=== PATIENT | male | born 1975 | race Caucasian/White ===

== ENCOUNTER 2019-12-29 18:13 | Emergency (ER) | payer OTHER ==
[~2019-12-29] VITALS: Ht 68 cm; Wt 83.0 kg
[~2019-12-29 18:13] MED LIST: ACHD5005 PO; CEPH500C PO; GENT5DRO3 OD; HYDR1CAP2 PO; HYDR1TAB8 OP; NAPR-243 PO; SULF1TAB35 PO; SULF1TAB38 PO
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
--- NOTE | 2019-12-29 19:06 | NUR ---
Pt denies need for anything at this time.
[2019-12-29 19:45] VITALS: BP 110/78
[2019-12-29] MEDS ORDERED: HYDROcodone/APAP 5 MG/325 MG (LORTAB) TAB PO ONE (19:45)
[2019-12-29 19:49] VITALS: BP 117/68
== END 2019-12-29 19:49 | disposition home or self-care (01) ==
LOC: EDUNIT# 18:13 → ER 18:15
DX: S70.02XA Contusion of left hip, initial encounter (principal); S50.812A Abrasion of left forearm, initial encounter; S80.812A Abrasion, left lower leg, initial encounter; S30.811A Abrasion of abdominal wall, initial encounter; R40.2142 Coma scale, eyes open, spontaneous, at arrival to emergency department; R40.2252 Coma scale, best verbal response, oriented, at arrival to emergency department; R40.2362 Coma scale, best motor response, obeys commands, at arrival to emergency department; F17.200 Nicotine dependence, unspecified, uncomplicated; V23.4XXA Motorcycle driver injured in collision with car, pick-up truck or van in traffic accident, initial encounter

== ENCOUNTER 2021-06-28 11:31 | Day surgery (SDC) | payer SELFPAY ==
[~2021-06-28] VITALS: Ht 172 cm; Wt 83.0 kg
[2021-06-28] VITALS (10 sets, daily range): BP systolic 110–159; BP diastolic 80–89
[2021-06-28] MEDS ORDERED: NS IV 1000 ML 1,000 ML IV STA (11:46)
--- NOTE | 2021-06-28 11:50 | ED Abdominal Pain ---
General Chief Complaint: Abdominal/GI Problems Stated Complaint: ABD PAIN,N/V Nursing Triage Note: PT AMB TO RM 6 PT CO OF ABD PAIN, STATES STARTED THIS AM, HAS VOMITED 3X. DENIES FEVERS OR DIARRHEA. Source of Information: Patient Exam Limitations: No Limitations History of Present Illness Date Seen by Provider: Jun 28, 2021 Time Seen by Provider: 11:48 Initial Comments Patient is a 46-year-old male who presents ED with mid abdominal pain. Started 3 or 4 hours ago. Described as a crampy pain located to his mid abdomen. Patient vomited 3 or 4 times without any bile or hematemesis. No diarrhea. No history of previous abdominal surgery. Patient attempted to take Tums and Pepto-Bismol but immediately vomited. History of GERD. Denies any chest pain, cough, fever, headache, shortness of breath, dysuria, decreased urine output, dizziness. Patient states he did eat cheese last night which may have upset his stomach. Denies of any recent travels Allergies and Home Medications Allergies Coded Allergies: No Known Drug Allergies (Verified , 02/14/07) Patient Home Medication List Home Medication List Reviewed: Yes Hydrocodone Bit/Ibuprofen (Vicoprofen 200-7.5 Mg Tab) 1 Each Tablet, 1 EACH OP Q 4 - 6 HRS PRN PRN for PAIN Prescribed by: HIEU FELIX on 10/26/142119 Sulfamethoxazole/Trimethoprim (Bactrim DS) 1 Each Tablet, 1 TAB PO BID Prescribed by: HIEU FELIX on 10/26/142119 Trimethoprim/Sulfamethoxazole (Bactrim Ds) 1 Ea Tablet, 1 EA PO BID Prescribed by: ANIBAL CRUZ on 05/14/11 1503 Review of Systems Review of Systems Constitutional: No chills, No diaphoresis, No fever, No malaise, No weakness EENTM: No Double Vision, No Ear Drainage, No Mouth Pain, No Mouth Swelling, No Throat Pain Respiratory: Denies Cough, Denies SOA With Exertion, Denies SOA at Rest Cardiovascular: Denies Chest Pain, Denies Edema, Denies Irregular Heart Rate Gastrointestinal: Abdominal Pain; Denies Diarrhea; Nausea, Vomiting Genitourinary: Denies Burning, Denies Discharge, Denies Frequency Musculoskeletal: No back pain, No joint pain Skin: No change in color, No change in hair/nails All Other Systems Reviewed Negative Unless Noted: Yes Past Nhrofdv-Xaiiqz-Vibfhi Hx Patient Social History Tobacco Use?: Yes Smoking Status: Current Everyday Smoker Substance use?: No Alcohol Use?: No Pt feels they are or have been: No Immunizations Up To Date Tetanus Booster (TDap): Less than 5yrs Past Medical History Orthopedic Reproductive Disorders: No Physical Exam Vital Signs Vital Signs - First Documented 06/28/21 11:37 Temp 35.5 Pulse 80 Resp 18 B/P (MAP) 141/82 (101) Pulse Ox 99 O2 Delivery Room Air Capillary Refill : Less Than 3 Seconds Height/Weight/BMI Height: 5'8" Weight: 170lbs. oz. 77.094250dt; 28.00 BMI Method:Stated General Appearance: WD/WN, no apparent distress HEENT: PERRL/EOMI, normal ENT inspection, TMs normal, pharynx normal Neck: non-tender, full range of motion, normal inspection Respiratory: chest non-tender, lungs clear, normal breath sounds, no respiratory distress, no accessory muscle use Cardiovascular: regular rate, rhythm, no edema, no gallop, no JVD Gastrointestinal: normal bowel sounds, non tender, other (Mid abdominal tenderness) Extremities: normal range of motion, non-tender, normal inspection, no pedal edema, no calf tenderness Back: normal inspection, no CVA tenderness, no vertebral tenderness Skin: normal color, warm/dry Progress/Results/Core Measures Results/Orders Lab Results Laboratory Tests Test 06/28/21 11:55 06/28/21 12:00 Range/Units White Blood Count 19.9 H 4.3-11.0 10^3/uL Red Blood Count 5.07 4.30-5.52 10^6/uL Hemoglobin 15.0 13.3-17.7 g/dL Hematocrit 43 40-54 % Mean Corpuscular Volume 85 80-99 fL Mean Corpuscular Hemoglobin 30 25-34 pg Mean Corpuscular Hemoglobin Concent 35 32-36 g/dL Red Cell Distribution Width 12.5 10.0-14.5 % Platelet Count 370 130-400 10^3/uL Mean Platelet Volume 9.5 9.0-12.2 fL Immature Granulocyte % (Auto) 1 % Neutrophils (%) (Auto) 86 H 42-75 % Lymphocytes (%) (Auto) 8 L 12-44 % Monocytes (%) (Auto) 6 0-12 % Eosinophils (%) (Auto) 0 0-10 % Basophils (%) (Auto) 0 0-10 % Neutrophils # (Auto) 17.1 H 1.8-7.8 10^3/uL Lymphocytes # (Auto) 1.5 1.0-4.0 10^3/uL Monocytes # (Auto) 1.1 H 0.0-1.0 10^3/uL Eosinophils # (Auto) 0.0 0.0-0.3 10^3/uL Basophils # (Auto) 0.1 0.0-0.1 10^3/uL Immature Granulocyte # (Auto) 0.1 0.0-0.1 10^3/uL Neutrophils % (Manual) 84 % Lymphocytes % (Manual) 9 % Monocytes % (Manual) 5 % Eosinophils % (Manual) 0 % Basophils % (Manual) 0 % Band Neutrophils 2 % Blood Morphology Comment NORMAL Sodium Level 137 135-145 MMOL/L Potassium Level 3.8 3.6-5.0 MMOL/L Chloride Level 103 98-107 MMOL/L Carbon Dioxide Level 23 21-32 MMOL/L Anion Gap 11 5-14 MMOL/L Blood Urea Nitrogen 13 7-18 MG/DL Creatinine 0.81 0.60-1.30 MG/DL Estimat Glomerular Filtration Rate 111 BUN/Creatinine Ratio 16 Glucose Level 136 H 70-105 MG/DL Calcium Level 9.2 8.5-10.1 MG/DL Corrected Calcium 8.9 8.5-10.1 MG/DL Total Bilirubin 0.2 0.1-1.0 MG/DL Aspartate Amino Transf (AST/SGOT) 14 5-34 U/L Alanine Aminotransferase (ALT/SGPT) 36 0-55 U/L Alkaline Phosphatase 78 40-136 U/L Total Protein 7.1 6.4-8.2 GM/DL Albumin 4.4 3.2-4.5 GM/DL Lipase 12 8-78 U/L Urine Color YELLOW Urine Clarity CLEAR Urine pH 6.0 5-9 Urine Specific [place] >=1.030 1.016-1.022 Urine Protein NEGATIVE NEGATIVE Urine Glucose (UA) NEGATIVE NEGATIVE Urine Ketones TRACE H NEGATIVE Urine Nitrite NEGATIVE NEGATIVE Urine Bilirubin NEGATIVE NEGATIVE Urine Urobilinogen 0.2 < = 1.0 MG/DL Urine Leukocyte Esterase NEGATIVE NEGATIVE Urine RBC (Auto) NEGATIVE NEGATIVE Urine RBC RARE /HPF Urine WBC RARE /HPF Urine Crystals NONE /LPF Urine Bacteria TRACE /HPF Urine Casts NONE /LPF Urine Mucus SMALL H /LPF Urine Culture Indicated NO My Orders Orders - SVEN STALEY Cbc With Automated Diff (06/28/21 11:46) Comprehensive Metabolic Panel (06/28/21 11:46) Lipase (06/28/21 11:46) Ondansetron Injection (Zofran Injectio (06/28/21 12:00) Ns Iv 1000 Ml (Sodium Chloride 0.9%) (06/28/21 11:46) Ua Culture If Indicated (06/28/21 11:46) Manual Differential (06/28/21 11:55) Ct Abdomen/Pelvis W (06/28/21 12:03) Iohexol Injection (Omnipaque 350 Mg/Ml 1 (06/28/21 12:15) Received Contrast (Hold Metformin- Contr (06/28/21 12:15) Ns (Ivpb) (Sodium Chloride 0.9% Ivpb Bag (06/28/21 12:15) Piperacillin Sodium/Tazobactam (Zosyn Vi (06/28/21 13:00) Nothing By Mouth (06/28/21 Lunch) Piperacillin Sodium/Tazobactam (Zosyn Vi (06/28/21 13:10) Medications Given in ED Current Medications Medications Dose Ordered Sig/Pal Route Start Time Stop Time Status Last Admin Dose Admin Iohexol 100 ml ONCE ONCE IV 06/28/21 12:15 06/28/21 12:16 DC 06/28/21 12:34 100 ML Ondansetron HCl 4 mg ONCE ONCE IVP 06/28/21 12:00 06/28/21 12:01 DC 06/28/21 11:50 4 MG Piperacillin Sod/ Tazobactam Sod 4.5 gm/Sodium Chloride 100 ml @ 200 mls/hr ONCE ONCE IV 06/28/21 13:00 06/28/21 13:29 DC 06/28/21 13:14 200 MLS/HR Sodium Chloride 100 ml ONCE ONCE IV 06/28/21 12:15 06/28/21 12:16 DC 06/28/21 12:35 80 ML Vital Signs/I&O 06/28/21 11:37 Temp 35.5 Pulse 80 Resp 18 B/P (MAP) 141/82 (101) Pulse Ox 99 O2 Delivery Room Air Blood Pressure Mean: 101 Departure Communication (Admissions) Time/Spoke to Admitting Phy: 12:[address] Kenyon at 1253. Patient with acute pain ascites without perforation. N.p.o. Started on Zosyn. Was given dose IV fluids. Nausea improved with Zofran. Pain controlled. Patient will go to the OR. Impression Primary Impression: Appendicitis Disposition: ADMITTED INPATIENT Condition: Stable Admissions Decision to Admit Reason: Admit from ER (General) Decision to Admit/Date: Jun 28, 2021 Time/Decision to Admit Time: 12:56 Departure-Patient Inst. Referrals: [facility] (PCP/Family) Primary Care Physician SVEN STALEY Jun 28, 2021 11:50
[2021-06-28] MEDS ORDERED: ONDANSETRON 4 MG/2 ML (SDV) Z0FRAN IVP ONE (12:00)
[2021-06-28 12:02] LABS: BASOPHILS # (AUTO) 0.1 10^3/uL (0.0-0.1); BASOPHILS % (AUTO) 0 % (0-10); EOSINOPHILS % (AUTO) 0 % (0-10); HEMATOCRIT 43 % (40-54); LYMPHOCYTES # (AUTO) 1.5 10^3/uL (1.0-4.0); LYMPHOCYTES % (AUTO) 8 % (12-44); MEAN CORPUSCULAR HEMOGLOBIN 30 pg (25-34); MEAN CORPUSCULAR HGB CONC 35 g/dL (32-36); MEAN CORPUSCULAR VOLUME 85 fL (80-99); MEAN PLATELET VOLUME 9.5 fL (9.0-12.2); MONOCYTES # (AUTO) 1.1 10^3/uL (0.0-1.0); MONOCYTES % (AUTO) 6 % (0-12); NEUTROPHILS # (AUTO) 17.1 10^3/uL (1.8-7.8); NEUTROPHILS % (AUTO) 86 % (42-75); PLATELET COUNT 370 10^3/uL (130-400); WHITE BLOOD COUNT 19.9 10^3/uL (4.3-11.0)
[2021-06-28 12:06] LABS: BILIRUBIN,URINE NEGATIVE (NEGATIVE); CLARITY,URINE CLEAR; COLOR,URINE YELLOW; GLUCOSE, URINE (UA) NEGATIVE (NEGATIVE); KETONES,URINE TRACE (NEGATIVE); LEUKOCYTE ESTERASE ,URINE NEGATIVE (NEGATIVE); NITRITE,URINE NEGATIVE (NEGATIVE); PROTEIN,URINE NEGATIVE (NEGATIVE)
[2021-06-28 12:13] LABS: BACTERIA,URINE TRACE /HPF; RBC,URINE RARE /HPF; WBC,URINE RARE /HPF
[2021-06-28] MEDS ORDERED: NS 100 ML (IVPB) BAG IV ONE (12:15)
[2021-06-28] MEDS ORDERED: HOLD METFORMIN - RECEIVED CONTRAST 20 ML VIAL IV SCH (12:15)
[2021-06-28] MEDS ORDERED: IOHEXOL 350 MG/ML 100 ML (OMNIPAQUE 350) VIAL IV ONE (12:15)
[2021-06-28 12:16] LABS: ALBUMIN 4.4 GM/DL (3.2-4.5); POTASSIUM 3.8 MMOL/L (3.6-5.0)
[2021-06-28 12:17] LABS: CALCIUM 9.2 MG/DL (8.5-10.1)
[2021-06-28 12:19] LABS: TOTAL PROTEIN 7.1 GM/DL (6.4-8.2)
[2021-06-28 12:20] LABS: BILIRUBIN,TOTAL 0.2 MG/DL (0.1-1.0)
[2021-06-28 12:22] LABS: CREATININE SERUM 0.81 MG/DL (0.60-1.30)
--- NOTE | 2021-06-28 12:43 | Diagnostic Imaging Report ---
PROCEDURE: CT abdomen and pelvis with contrast. TECHNIQUE: Multiple contiguous axial images were obtained through the abdomen and pelvis after administration of intravenous contrast. Auto Exposure Controls were utilized during the CT exam to meet ALARA standards for radiation dose reduction. All CT scans use one or more of the following dose optimizing techniques: automated exposure control, MA and/or KvP adjustment based on patient size and exam type or iterative reconstruction. INDICATION: Right lower quadrant pain, leukocytosis The lung bases are clear. Liver appears normal. Portal vein is patent. Gallbladder is unremarkable. Common duct is not dilated. Pancreas appears normal. Spleen is not enlarged. GE junction is unremarkable. Adrenals are normal. Kidneys are unremarkable. Aorta and IVC appear normal. Small bowel is not dilated. The appendix is distended with a thickened wall and some periappendiceal induration of the fat. There is diverticulosis of the colon without evidence of diverticulitis. Urinary bladder and prostate appear normal. There is no intraperitoneal free air or free fluid. IMPRESSION: Acute appendicitis without evidence of perforation. Dictated by: Dictated on workstation # [id number]
[2021-06-28 12:55] LABS: BAND NEUTROPHILS 2 %; BASOPHILS % (MANUAL) 0 %; EOSINOPHILS % (MANUAL) 0 %; LYMPHOCYTES % (MANUAL) 9 %; MONOCYTES % (MANUAL) 5 %; NEUTROPHILS % (MANUAL) 84 %; RBC MORPH NORMAL
[2021-06-28] MEDS ORDERED: PIPERACILLIN SODIUM/TAZOBACTAM 4.5 GM in NS (IVPB) 100 ML IV ONE (13:00)
[2021-06-28] MEDS ORDERED: PIPERACILLIN/TAZO 4.5 GM VIAL (ZOSYN) IV ONE (13:10)
--- NOTE | 2021-06-28 14:31 | History & Physical-Surgical ---
DEANA HEALY 06/28/21 1431: History of Present Illness History of Present Illness Reason for visit/HPI CC: Stomach pain 46 yo male presented to the ER with 3-4 hours of sharp 8/10 pain over his belly button. The pain had since moved to his RLQ. The pt had N/V earlier in the day; the anti-nausea medicine made the pain better. He last had a bowel movement yesterday and is urinating frequently without pain. He last ate at 7 or 8pm last night and has not drank anything since 9am this morning. Pt had a CT of his abd/pelvis which showed acute appendicitis and no evidence of perforation. Date of Admission 06/28/21 Date Seen by a Provider: Jun 28, 2021 Time Seen by a Provider: 20:00 I consulted on this patient on 06/28/21 14:25 Attending Physician Wilman Rowell DO Admitting Physician [place] Consult Allergies and Home Medications Allergies Coded Allergies: No Known Drug Allergies (Verified , 02/14/07) Patient Home Medication List Hydrocodone Bit/Ibuprofen (Vicoprofen 200-7.5 Mg Tab) 1 Each Tablet, 1 EACH OP Q 4 - 6 HRS PRN PRN for PAIN Prescribed by: HIEU FELIX on 10/26/142119 Sulfamethoxazole/Trimethoprim (Bactrim DS) 1 Each Tablet, 1 TAB PO BID Prescribed by: HIEU FELIX on 10/26/142119 Trimethoprim/Sulfamethoxazole (Bactrim Ds) 1 Ea Tablet, 1 EA PO BID Prescribed by: ANIBAL CRUZ on 05/14/11 1503 Past Gsjwddt-Qdurwq-Kkxznn Hx Patient Social History Tobacco Use?: Yes Tobacco type used: Cigarettes Smoking Status: Current Everyday Smoker Substance use?: No Alcohol Use?: No Pt feels they are or have been: No Current Status Advance Directives: No Communicates: Verbally Primary Language: Armenian Preferred Spoken Language: Armenian Is interpretation needed?: No Sensory deficits: Vision impairment Implanted or Applied Medical D: None Past Medical History Surgeries: Ear Surgery, Orthopedic, Tonsillectomy Gastroesophageal Reflux Schizophrenia Review of Systems Constitutional: No chills, No fever EENTM: No ear pain, No blurred vision Respiratory: No cough, No short of breath Cardiovascular: No chest pain, No palpitations Gastrointestinal: RLQ, abdominal pain, nausea, vomiting Genitourinary: no symptoms reported; No dysuria, No incontinence Musculoskeletal: No joint pain, No muscle cramps Skin: dryness; No rash Psychiatric/Neurological: Denies Headache; Other (hears voices) Physical Exam Vital Signs Vital Signs - First Documented 06/28/21 11:37 Temp 35.5 Pulse 80 Resp 18 B/P (MAP) 141/82 (101) Pulse Ox 99 O2 Delivery Room Air Capillary Refill : Less Than 3 Seconds Height, Weight, BMI Height: 5'8" Weight: 170lbs. oz. 77.463085dl; 28.00 BMI Method:Stated General Appearance: WD/WN, Mild Distress Respiratory: Lungs Clear, Normal Breath Sounds Cardiovascular: Regular Rate, Rhythm, No Murmur Gastrointestinal: Normal Bowel Sounds, No Pulsatile Mass, Tenderness (RLQ) Neurologic/Psychiatric: Alert, Oriented x3, Normal Mood/Affect Skin: Normal Color, Warm/Dry Data Review Labs Laboratory Tests 06/28/21 11:55: White Blood Count 19.9H, Red Blood Count 5.07, Hemoglobin 15.0, Hematocrit 43, Mean Corpuscular Volume 85, Mean Corpuscular Hemoglobin 30, Mean Corpuscular Hemoglobin Concent 35, Red Cell Distribution Width 12.5, Platelet Count 370, Mean Platelet Volume 9.5, Immature Granulocyte % (Auto) 1, Neutrophils (%) (Auto) 86H, Lymphocytes (%) (Auto) 8L, Monocytes (%) (Auto) 6, Eosinophils (%) (Auto) 0, Basophils (%) (Auto) 0, Neutrophils # (Auto) 17.1H, Lymphocytes # (Auto) 1.5, Monocytes # (Auto) 1.1H, Eosinophils # (Auto) 0.0, Basophils # (Auto) 0.1, Immature Granulocyte # (Auto) 0.1, Neutrophils % (Manual) 84, Lymphocytes % (Manual) 9, Monocytes % (Manual) 5, Eosinophils % (Manual) 0, Basophils % (Manual) 0, Band Neutrophils 2, Blood Morphology Comment NORMAL, Sodium Level 137, Potassium Level 3.8, Chloride Level 103, Carbon Dioxide Level 23, Anion Gap 11, Blood Urea Nitrogen 13, Creatinine 0.81, Estimat Glomerular Filtration Rate 111, BUN/Creatinine Ratio 16, Glucose Level 136H, Calcium Level 9.2, Corrected Calcium 8.9, Total Bilirubin 0.2, Aspartate Amino Transf (AST/SGOT) 14, Alanine Aminotransferase (ALT/SGPT) 36, Alkaline Phosphatase 78, Total Protein 7.1, Albumin 4.4, Lipase 12 06/28/21 12:00: Urine Color YELLOW, Urine Clarity CLEAR, Urine pH 6.0, Urine Specific [place] >=1.030, Urine Protein NEGATIVE, Urine Glucose (UA) NEGATIVE, Urine Ketones TRACEH, Urine Nitrite NEGATIVE, Urine Bilirubin NEGATIVE, Urine Urobilinogen 0.2, Urine Leukocyte Esterase NEGATIVE, Urine RBC (Auto) NEGATIVE, Urine RBC RARE, Urine WBC RARE, Urine Crystals NONE, Urine Bacteria TRACE, Urine Casts NONE, Urine Mucus SMALLH, Urine Culture Indicated NO Assessment/Plan Assessment/Plan Admission Diagonsis Appendicitis Assessment/Plan Abdominal pain secondary to acute appendicitis N/V HTN Possible schizophrenia Appendectomy Monitor bp Voices controlled by Invega injections WILMAN ROWELL DO 06/28/21 1543: History of Present Illness History of Present Illness Reason for visit/HPI CC: rlq abd pain. Seen and evaluated in ED. Patient is a 46 year old male began having pain at umbilicus this morning. Then migrated to right lower quadrant. Had nausea and emesis. Pain sharp and 8/10 at worse. No radiation of pain at this time. Movement makes worse, nothing better. Denies fever sweats chills shortness of breath or chest pain. Patient had ct scan which we reviewed that demonstrates findings consistent with acute appendicitis. Date of Admission T Allergies and Home Medications Allergies Coded Allergies: No Known Drug Allergies (Verified , 02/14/07) Patient Home Medication List Home Medication List Reviewed: Yes Hydrocodone Bit/Ibuprofen (Vicoprofen 200-7.5 Mg Tab) 1 Each Tablet, 1 EACH OP Q 4 - 6 HRS PRN PRN for PAIN Prescribed by: HIEU FELIX on 10/26/142119 Sulfamethoxazole/Trimethoprim (Bactrim DS) 1 Each Tablet, 1 TAB PO BID Prescribed by: HIEU FELIX on 10/26/142119 Trimethoprim/Sulfamethoxazole (Bactrim Ds) 1 Ea Tablet, 1 EA PO BID Prescribed by: ANIBAL CRUZ on 05/14/11 1503 Past Vomvidl-Kzxvwt-Bsnbfc Hx Patient Social History Tobacco type used: Cigarettes Alcohol Use?: Yes Alcohol Frequency: Once in a while Past Medical History Surgeries: Ear Surgery, Orthopedic, Tonsillectomy Gastroesophageal Reflux Schizophrenia Family Medical History Reviewed Nursing Family Hx No Pertinent Family Hx Review of Systems Constitutional: No chills, No fever EENTM: No ear pain, No blurred vision Respiratory: No cough, No dyspnea on exertion, No short of breath Cardiovascular: No chest pain, No palpitations Gastrointestinal: RLQ, abdominal pain (RLQ), nausea, vomiting Genitourinary: No dysuria, No incontinence Musculoskeletal: No joint pain, No muscle cramps Skin: No change in color, No change in hair/nails; dryness; No rash Psychiatric/Neurological: Denies Anxiety, Denies Depressed, Denies Emotional Problems, Denies Headache All Other Systems Reviewed Negative Unless Noted: Yes (Negative excepted noted.) Physical Exam General Appearance: No Apparent Distress, WD/WN HEENT: PERRL/EOMI, Normal ENT Inspection Neck: Normal Inspection, Non Tender Respiratory: Chest Non Tender, No Accessory Muscle Use, No Respiratory Distress Cardiovascular: Regular Rate, Rhythm, No JVD Gastrointestinal: No Organomegaly, Soft, Tenderness (RLQ), Other (small umbilical hernia) Rectal: Deferred Back: No CVA Tenderness, No Vertebral Tenderness Extremity: Non Tender, No Calf Tenderness Neurologic/Psychiatric: Alert, Oriented x3 Skin: Normal Color, Warm/Dry Lymphatic: No Adenopathy Assessment/Plan Assessment/Plan Admission Diagonsis rlq abdominal acute appendicitis leukocytosis Admission Status: Observation Assessment/Plan RLQ Abdominal pain secondary to acute appendicitis N/V Elevated blood pressure Possible schizophrenia We discussed risks and benefits of laparoscopic appendectomy all other indicated procedures. Understand and wishes to proceed. Monitor vitals NPO IV hydration Zosyn To OR for procedure. Supervisory-Addendum Brief Verification & Attestation Participated in pt care: history, MDM, physical Personally performed: exam, history, MDM, supervision of care Care discussed with: Medical Student Procedures: n/a Results interpretation: Verified all documentation Verification and Attestation of Medical Student E/M Service A medical student performed and documented this service in my presence. I reviewed and verified all information documented by the medical student and made modifications to such information, when appropriate. I personally performed the physical exam and medical decision making. Wilman Rowell, Jun 28, 2021,15:47 DEANA HEALY Jun 28, 2021 14:31 WILMAN ROWELL DO Jun 28, 2021 15:43
[2021-06-28] MEDS: LACTATED RINGERS 1,000 ML IV PRN ×2 (15:20→16:20)
[2021-06-28] MEDS ORDERED: LIDOCAINE/EPI 1%-1:200,000 (XYLOCAINE) 30 ML VIAL ONE (15:36)
[2021-06-28] MEDS ORDERED: proPOfol 200 MG/20 ML (DIPRIVAN) VIAL IV ONE (15:39)
[2021-06-28] MEDS ORDERED: MIDAZOLAM 2 MG/2 ML (VERSED) VIAL ONE (15:39)
[2021-06-28] MEDS ORDERED: LIDOCAINE PF 2% 5 ML (XYLOCAINE) VIAL ONE (15:39)
[2021-06-28] MEDS ORDERED: fentaNYL INJ 100 MCG/2 ML AMP ONE (15:39)
[2021-06-28] MEDS ORDERED: ceFAZolin INJECTION 2,000 MG ONE (16:08)
[2021-06-28] MEDS ORDERED: KETOROLAC 30 MG/ML VIAL ONE (16:41)
[2021-06-28] MEDS ORDERED: ONDANSETRON 4 MG/2 ML (SDV) Z0FRAN ONE (16:41)
[2021-06-28] MEDS ORDERED: SEVOFLURANE (ULTANE) 15 ML INHAL SOLN ONE (16:41)
[2021-06-28] MEDS ORDERED: ROCURONIUM 50 MG/5 ML (ZEMURON) VIAL IV ONE (16:41)
[2021-06-28] MEDS ORDERED: morphine INJ 10 MG/ML 1ML (SYR OR VIAL) ONE (17:21)
--- NOTE | 2021-06-28 17:22 | Anesthesia-General Post-Op ---
General Patient Condition Mental Status/LOC: Same as Preop Cardiovascular: Satisfactory Nausea/Vomiting: Absent Respiratory: Satisfactory Pain: Controlled Complications: Absent Post Op Complications Complications None Follow Up Care/Instructions Patient Instructions None needed. Anesthesia/Patient Condition Patient Condition Patient is doing well, no complaints, stable vital signs, no apparent adverse anesthesia problems. No complications reported per nursing. MICHELLE VAZQUEZ CRNA Jun 28, 2021 17:22
[2021-06-28] MEDS ORDERED: morphine INJ 10 MG/ML 1ML (SYR OR VIAL) IVP ONE (17:30)
[2021-06-28] MEDS ORDERED: PROMETHAZINE INJ 25 MG/ML (PHENERGAN) AMP IVP ONE (17:30)
[2021-06-28] MEDS ORDERED: ONDANSETRON 4 MG/2 ML (SDV) Z0FRAN IVP PRN (17:30)
[2021-06-28] MEDS ORDERED: ACHD5005 PO (17:34)
[2021-06-28] MEDS ORDERED: DOCU-143 PO (17:34)
--- NOTE | 2021-06-28 17:35 | Discharge Inst-Simple/Standard ---
Discharge Inst-Standard Discharge Medications New, Converted or Re-Newed RX: Transmitted to Pharmacy Patient Instructions/Follow Up Plan of Care/Instructions/FU: 2 weeks corwin Activity as Tolerated: No Discharge Diet: Regular Diet Other Inst to Patient Follow up Appt: Make appointment for 2 week. Instructions: No lifting greater than 10 pounds. No strenuous activity. May shower in 24 hours, no tub bath or soaking. Use incentive spirometer at home as directed. No Smoking Skin/Wound Care: You have special glue over your incision that will fall off on it's own. Symptoms to Report: Appetite Changes, Extremity Discoloration, Numbness/Tingling, Swelling Increased, Bleeding Excessive, Eyesight Changes, Pain Increased, Urine Color Change, Constipation(Persistent), Fever over 101 degree F, Pain/Pressure in chest, Urinating Difficulty, Cough Up/Vomit Blood, Heart Beat Irreg/Pounding, Pain/Pressure in jaw, Vaginal Bleeding Increase, Cramps in feet or legs, Lightheadedness, Pain/Pressure in shoulder, Diarrhea(Persistent), Memory Changes Suddenly, Questions/Concerns, Weight gain consecutive days, Dizziness/Fainting, Nausea/Vomiting, Shortness of Breath, Weight gain over 2 pounds If questions or concerns contact your physician Or seek help at emergency department. WILMAN ROWELL DO Jun 28, 2021 17:35
--- NOTE | 2021-06-28 17:37 | Progress Note-Post Operative ---
Post-Operative Progess Note Surgeon (s)/Tag Meter Operator (s) Surgeon WILMAN ROWELL DO Tag Meter Operator: na Pre-Operative Diagnosis acute appendicitis Post-Operative Diagnosis same Procedure & Operative Findings Date of Procedure 06/28/21 Procedure Performed/Findings PROCEDURE: Laparoscopic appendectomy. COMPLICATIONS: None. INDICATIONS: The patient is a 46 year old male who has been having right lower quadrant abdominal pain. Patient's exam consistent with appendicitis. I discussed risk and benefits of laparoscopic appendectomy and all indicated procedures with the possibility being a normal appendix. The patient understands the risks and benefits and wishes to proceed. Consent was signed on the chart. DESCRIPTION OF PROCEDURE: The patient was taken to the operating suite, prepped and draped in a sterile fashion. Timeout was performed. Local anesthetic was infiltrated just above the umbilicus and 11-blade scalpel was used to make a skin incision. Cautery was used to dissect down to the fascia and scored. Kochers were used to grasp and elevate it and the abdomen was then entered. A 0 Vicryl was placed in a [id number] fashion for closure at the end of the case. The balloon trocar was inserted into the abdomen and pneumoperitoneum was achieved. Under direct visualization of the laparoscope, a 5 mm trocar was placed in the suprapubic region and a 5 mm trocar was placed in the left lower quadrant. Appendix was located, Inflamed appendix no perforation. The base of the appendix was dissected around. Once at the base an Endo-TIFFANI 2.5 stapler was then fired across the base of the appendix. The mesoappendix was then divided. It was then placed in an Endobag and removed through the 12 mm trocar site. The abdomen was then irrigated and suctioned. No other pathology noted. The abdomen was then desufflated and the trocars were removed. The 0 Vicryl placed at the beginning of the case was then tied closing the 12 mm fascial defect. The skin was then closed using 4-0 Monocryl in a subcuticular fashion. The abdomen was then washed and dried and Skin Affix was placed over the incisions. The patient tolerated the procedure well without any complications and was taken to the recovery room in stable condition. Anesthesia Type general Estimated Blood Loss Estimated blood loss (mL): minimal Specimens/Packing Specimens Removed WILMAN Hendrix DO Jun 28, 2021 17:36
[2021-06-28] MEDS ORDERED: GLYCOPYRROLATE 0.2 MG/ML (ROBINUL) 2 ML VIAL ONE (17:41)
[2021-06-28] MEDS ORDERED: NEOSTIGMINE 3 MG/3 ML VIAL ONE (17:42)
== END 2021-06-28 18:50 | disposition home or self-care (01) ==
LOC: EDUNIT# 11:31 → ER 11:34 → SDC 14:08
PROVIDERS: ATTEND Surgery
DX: K35.80 Unspecified acute appendicitis (principal); R03.0 Elevated blood-pressure reading, without diagnosis of hypertension; F17.210 Nicotine dependence, cigarettes, uncomplicated
CPT/HCPCS: 36415; 74177; 80053; 81000; 83690; 85007; 85027